=== PATIENT | female | born 1985 | race Caucasian/White ===

== ENCOUNTER 2023-05-27 04:35 | Emergency (ER) | payer MEDICAID ==
[~2023-05-27] VITALS: Ht 167.6 cm; Wt 64.0 kg
[2023-05-27 04:48] VITALS: TEMP 98.4; O2SAT 99
[2023-05-27 05:18] LABS: CLARITY URINE CLOUDY (CLEAR); COLOR URINE DARK YELLOW (YELLOW); GLUCOSE URINE NEGATIVE (NEGATIVE); KETONES URINE 2+ (NEGATIVE); LEUKOCYTE ESTERASE URINE TRACE (NEGATIVE); NITRITE URINE NEGATIVE (NEGATIVE); OCCULT BLOOD URINE 2+ (NEGATIVE); PROTEIN URINE 1+ (NEGATIVE); SPECIFIC GRAVITY URINE 1.032 (1.005-1.030)
[2023-05-27 05:21] LABS: BACTERIA URINE 1+; SQUAMOUS EPITHELIAL CELL URINE 2+ /lpf (RARE/1+); YEAST URINE NONE SEEN
[2023-05-27 05:37] LABS: CHLORIDE 107 mEq/L (98-107); INDEX HEMOLYSI 1 (1-3); INDEX ICTERIC 1 (1-4); INDEX LIPEMIC 1 (1-3); POTASSIUM 3.4 mEq/L (3.5-5.1); SODIUM 137 mEq/L (136-145)
[2023-05-27 05:43] LABS: BASOPHILS % 0.3 % (0.0-2.0); EOSINOPHILS % 0.2 % (0.0-5.0); HEMATOCRIT. 40.9 % (36.0-48.0); HEMOGLOBIN. 13.8 g/dL (12.0-16.0); LYMPHOCYTES % 22.7 % (20.0-50.0); MEAN CORPUSCULAR HEMOGLOBIN 30.6 pg (28.0-32.0); MEAN CORPUSCULAR HGB CONC 33.8 g/dL (31.0-37.0); MEAN CORPUSCULAR VOLUME 90.4 fL (81.0-99.0); MEAN PLATELET VOLUME 8.4 fl (7.4-10.4); MONOCYTES % 7.1 % (2.0-8.0); NEUTROPHILS % 69.7 % (40.0-76.0); PLATELET 279 x1000/uL (130-400); RED BLOOD CELL COUNT 4.53 mill/uL (4.2-5.4); WHITE BLOOD COUNT 14.1 x1000/uL (4.5-11.0)
[2023-05-27 05:44] LABS: ALANINE AMINOTRANSFERASE 24 IU/L (13-61); ALBUMIN 4.2 g/dL (3.4-5.0); ASPARTATE AMINOTRANSFERASE 13 IU/L (15-37); BILIRUBIN TOTAL 0.6 mg/dL (0.1-1.0); CALCIUM 9.3 mg/dL (8.5-10.1); CARBON DIOXIDE 25 mEq/L (21-32); CREATININE 0.7 mg/dL (0.6-1.3); GLUCOSE 100 mg/dL (70-105); UREA NITROGEN BLOOD 11 mg/dL (7-21)
[2023-05-27 05:52] LABS: RBC URINE 15-25 /hpf (0-2)
[2023-05-27] MEDS ORDERED: ONDANSETRON HCL 4MG/2ML INJ IV STA (05:55)
[2023-05-27] MEDS ORDERED: KETOROLAC 30MG/ML VIAL IV STA (05:55)
[2023-05-27] MEDS ORDERED: SODIUM CHLORIDE 0.9% 1,000 ML IV ONE (06:00)
[2023-05-27 06:08] VITALS: BP 119/85; PULSE 88; RESP 18
[2023-05-27] MEDS ORDERED: ACETAMINOPHEN 325MG TABLET PO ONE (06:30)
[2023-05-27 06:46] LABS: HCG SCREEN POSITIVE
[2023-05-27] MEDS ORDERED: TOPUD PO (08:18)
[2023-05-27] MEDS ORDERED: NITR100C PO (08:18)
[2023-05-27] MEDS ORDERED: CALC500T6 PO (08:18)
== END 2023-05-27 09:09 | disposition home or self-care (01) ==
LOC: ER 04:35
DX: O20.0 Threatened abortion (principal); O23.41 Unspecified infection of urinary tract in pregnancy, first trimester; N39.0 Urinary tract infection, site not specified; Z3A.01 Less than 8 weeks gestation of pregnancy
CPT/HCPCS: 99285; 96374; 76801; 96361; 96375; 80053; 81003; 81025; 84703; 84702; 83690; 85025; 36415; 76817; 93005; J1885; J2405; J7030

== ENCOUNTER 2023-06-14 19:39 | Emergency (ER) | payer MEDICAID ==
[~2023-06-14] VITALS: Ht 165.1 cm; Wt 61.0 kg
[~2023-06-14 19:39] MED LIST: CALC500T6 PO; NITR100C PO; TOPUD PO
[2023-06-14 20:08] VITALS: O2SAT 100
[2023-06-14] MEDS ORDERED: SODIUM CHLORIDE 0.9% 1,000 ML IV ONE (21:00)
[2023-06-14] MEDS ORDERED: ONDANSETRON HCL 4MG/2ML INJ IV ONE (21:00)
[2023-06-14 21:33] LABS: CHLORIDE 107 mEq/L (98-107); INDEX HEMOLYSI 1 (1-3); INDEX ICTERIC 1 (1-4); INDEX LIPEMIC 1 (1-3); POTASSIUM 3.5 mEq/L (3.5-5.1); SODIUM 139 mEq/L (136-145)
[2023-06-14 21:36] LABS: BASOPHILS % 0.1 % (0.0-2.0); EOSINOPHILS % 0.6 % (0.0-5.0); HEMATOCRIT. 38.7 % (36.0-48.0); LYMPHOCYTES % 20.9 % (20.0-50.0); MEAN CORPUSCULAR HEMOGLOBIN 30.4 pg (28.0-32.0); MEAN CORPUSCULAR HGB CONC 33.6 g/dL (31.0-37.0); MEAN CORPUSCULAR VOLUME 90.4 fL (81.0-99.0); MEAN PLATELET VOLUME 9.1 fl (7.4-10.4); MONOCYTES % 9.6 % (2.0-8.0); NEUTROPHILS % 68.8 % (40.0-76.0); PLATELET 248 x1000/uL (130-400); RED BLOOD CELL COUNT 4.28 mill/uL (4.2-5.4); RED CELL DISTRIBUTION WIDTH 13.1 % (11.6-14.6); WHITE BLOOD COUNT 13.2 x1000/uL (4.5-11.0)
[2023-06-14 21:58] LABS: ALANINE AMINOTRANSFERASE 26 IU/L (13-61); ALBUMIN 3.6 g/dL (3.4-5.0); ASPARTATE AMINOTRANSFERASE 12 IU/L (15-37); BILIRUBIN TOTAL 0.4 mg/dL (0.1-1.0); CALCIUM 8.8 mg/dL (8.5-10.1); CARBON DIOXIDE 26 mEq/L (21-32); CREATININE 0.7 mg/dL (0.6-1.3); GLUCOSE 93 mg/dL (70-105); PROTEIN TOTAL 7.4 g/dL (6.0-8.3); UREA NITROGEN BLOOD 12 mg/dL (7-21)
[2023-06-14 22:06] LABS: HCG SCREEN POSITIVE
[2023-06-14 22:13] LABS: CLARITY URINE SL HAZY (CLEAR); COLOR URINE YELLOW (YELLOW); PH URINE 6.5 (4.5-8.0); PROTEIN URINE NEGATIVE (NEGATIVE); SPECIFIC GRAVITY URINE 1.027 (1.005-1.030)
[2023-06-14 22:14] LABS: GLUCOSE URINE NEGATIVE (NEGATIVE); KETONES URINE TRACE (NEGATIVE); LEUKOCYTE ESTERASE URINE NEGATIVE (NEGATIVE); NITRITE URINE NEGATIVE (NEGATIVE); OCCULT BLOOD URINE 2+ (NEGATIVE); UROBILINOGEN URINE 0.2 E.U./dL (0.2-1.0)
[2023-06-14 22:15] LABS: SQUAMOUS EPITHELIAL CELL URINE 1+ /lpf (RARE/1+)
[2023-06-14 22:16] LABS: BACTERIA URINE TRACE; WBC URINE 0-2 /hpf (0-2); YEAST URINE NONE SEEN
[2023-06-15] MEDS ORDERED: PANTOPRAZOLE SODIUM 40 MG/VIAL IV ONE
[2023-06-15 00:12] LABS: HEMATOCRIT 37.7 % (36.0-48.0); HEMOGLOBIN 12.5 g/dL (12.0-16.0)
[2023-06-15] MEDS ORDERED: ONDA4TAB50 MT (01:53)
[2023-06-15] MEDS ORDERED: ONDANSETRON HCL 4MG/2ML INJ IV NR (03:00)
[2023-06-15] MEDS ORDERED: PANTOPRAZOLE SODIUM 40 MG/VIAL IV NR (03:00)
[2023-06-15 03:22] VITALS: BP 134/72; PULSE 99; RESP 16; TEMP 98.6
== END 2023-06-15 03:25 | disposition home or self-care (01) ==
LOC: ER 19:39
DX: O21.9 Vomiting of pregnancy, unspecified (principal); Z3A.08 8 weeks gestation of pregnancy
CPT/HCPCS: 80053; 81003; 81025; 84703; 84702; 83690; 85014; 85018; 85025; 36415; 76801; 76817; 99285; 96361; 96374; 96375; J7030; J2405; C9113; Z7610 ×2